=== PATIENT | female | born 1965 | race Hispanic/Latino ===

== ENCOUNTER 2017-01-12 14:35 | Emergency (ER) | payer SELFPAY ==
[2017-01-12] MEDS ORDERED: NACL 0.9% 1000 ML 1,000 ML ONE (15:17)
[2017-01-12] MEDS ORDERED: ZOFRAN ONE (15:17)
[2017-01-12] MEDS ORDERED: ZOFRAN IV ONE ×2 (15:27→15:31)
[2017-01-12] MEDS ORDERED: NACL 0.9% 1000 ML 1,000 ML IV ONE ×2 (15:27→15:31)
[2017-01-12] MEDS ORDERED: KEPPRA 1,000 MG/NS 0.75% 100ML 1,000 MG/100 ML BAG IV ONE (15:31)
[2017-01-12 16:00] LABS: Basophils % (Auto) 0.4 % (0.0-1.8); Eosinophils % (Auto) 0.4 % (0.0-4.3); Hematocrit 30.5 % (30.3-42.9); Hemoglobin 10.1 gm/dl (10.1-14.3); Mean Corpuscular HGB Conc 33 % (30-34); Mean Corpuscular Hemoglobin 28 pg (28-32); Mean Corpuscular Volume 83 fl (79-97); Platelet Count 260 K/mm3 (140-440); Red Blood Count 3.67 M/mm3 (3.65-5.03); Red Cell Distribution Width 16.3 % (13.2-15.2)
[2017-01-12 16:19] LABS: Alanine Aminotransferase 10 units/L (7-56); Albumin 3.9 g/dL (3.9-5); Albumin/Globulin Ratio 1.6 %; Alkaline Phosphatase 89 units/L (35-129); Anion Gap 13 mmol/L; BUN/Creatinine Ratio 8.57; Bilirubin,Total 0.3 mg/dL (0.1-1.2); Blood Urea Nitrogen 6 mg/dL (7-17); Calcium 8.7 mg/dL (8.4-10.2); Carbon Dioxide 25 mmol/L (22-30); Chloride 104.1 mmol/L (98-107); Glucose 104 mg/dL (65-100); Potassium 4.1 mmol/L (3.6-5.0); Sodium 138 mmol/L (137-145); Total Protein 6.4 g/dL (6.3-8.2)
[2017-01-12 16:21] LABS: Bilirubin,Direct < 0.2 mg/dL (0-0.2); Bilirubin,Indirect 0.1 mg/dL
--- NOTE | 2017-01-12 16:36 | Emergency Department Report ---
ED Seizure HPI - General Chief Complaint: Seizure Stated Complaint: SEIZURE Time Seen by Provider: 01/12/17 15:16 Source: patient, EMS Mode of arrival: Stretcher Limitations: No Limitations - History of Present Illness Initial Comments: , The patient was witnessed to have a tonic-clonic seizure at her place of work. Patient states that she is aware that she bumped her head. She feels like she may have abraded her right lower lip. She complains of mild soreness only at these areas. She states that she had no prodromal headache. She did have a feeling of malaise and what she described as consistent with scintillations prior to the event. She states that she believes she had one other seizure or than 5 years ago but she did not have any workup thereof. She' s had no prior CT of the head for any reason. She does not report any alcohol or substance abuse. MD Complaint: seizure -: Sudden Description of Episode: tonic-clonic movement -: second(s) Witnessed:: Yes Trauma: Yes (see above) Seizure History: other Place: work Possible Precipitating Event: none Associated Symptoms: denies other symptoms Treatments Prior to Arrival: none - Related Data Previous Rx's Medication Instructions Recorded Last Taken Type Meclizine [Antivert] 25 mg PO TID PRN #15 tablet 02/03/14 02/05/14 09:00 Rx Ondansetron [Zofran] 4 mg PO Q6HR PRN #15 tablet 02/03/14 02/04/14 19:00 Rx Divalproex ER [Depakote ER] 500 mg PO QDAY #30 tablet NS 02/05/14 Unknown Rx methylPREDNISolone [Medrol Dose 1 tab PO DAILY #1 pkg 02/05/14 Unknown Rx Gus] levETIRAcetam [Keppra TAB] 500 mg PO BID #60 tablet 01/12/17 Unknown Rx Allergies Allergy/AdvReac Type Severity Reaction Status Date / Time No Known Allergies Allergy Verified 02/05/14 16:39 ED Review of Systems ROS: Stated complaint: SEIZURE Other details as noted in HPI Constitutional: denies: chills, fever Eyes: denies: eye pain, eye discharge, vision change ENT: denies: ear pain, throat pain Respiratory: denies: cough, shortness of breath, wheezing Cardiovascular: denies: chest pain, palpitations Endocrine: no symptoms reported Gastrointestinal: denies: abdominal pain, nausea, diarrhea Genitourinary: denies: urgency, dysuria, discharge Musculoskeletal: denies: back pain, joint swelling, arthralgia Skin: denies: rash, lesions Neurological: denies: headache, weakness, paresthesias Psychiatric: denies: anxiety, depression Hematological/Lymphatic: denies: easy bleeding, easy bruising ED Past Medical Hx - Past Medical History Previous Medical History?: No - Surgical History Past Surgical History?: No Additional Surgical History: tonsillectomy - Social History Smoking Status: Current Every Day Smoker Substance Use Type: None - Medications Home Medications: Home Medications Medication Instructions Recorded Confirmed Last Taken Type Meclizine [Antivert] 25 mg PO TID PRN #15 tablet 02/03/14 02/05/14 02/05/14 09: 00 Rx Ondansetron [Zofran] 4 mg PO Q6HR PRN #15 tablet 02/03/14 02/05/14 02/04/14 19: 00 Rx Divalproex ER [Depakote ER] 500 mg PO QDAY #30 tablet NS 02/05/14 Unknown Rx methylPREDNISolone [Medrol Dose 1 tab PO DAILY #1 pkg 02/05/14 Unknown Rx Gus] levETIRAcetam [Keppra TAB] 500 mg PO BID #60 tablet 01/12/17 Unknown Rx ED Physical Exam - General Limitations: No Limitations General appearance: alert, in no apparent distress - Head Head exam: Present: normocephalic, other (left forehead abrasion and soft tissue swelling.) - Eye Eye exam: Present: normal appearance, PERRL, EOMI. Absent: scleral icterus - ENT ENT exam: Present: mucous membranes moist, other (minimal lip abrasion/soft tissue swelling) - Neck Neck exam: Present: normal inspection. Absent: tenderness, meningismus - Respiratory Respiratory exam: Present: normal lung sounds bilaterally. Absent: respiratory distress - Cardiovascular Cardiovascular Exam: Present: regular rate, normal rhythm. Absent: systolic murmur, diastolic murmur, rubs, gallop - GI/Abdominal GI/Abdominal exam: Present: soft, normal bowel sounds. Absent: distended, tenderness, guarding, rebound, rigid - Extremities Exam Extremities exam: Present: normal inspection - Back Exam Back exam: Present: normal inspection - Neurological Exam Neurological exam: Present: alert, oriented X3, CN II-XII intact. Absent: motor sensory deficit - Psychiatric Psychiatric exam: Present: normal affect, normal mood - Skin Skin exam: Present: warm, dry, intact, normal color. Absent: rash ED Course Vital Signs 01/12/17 01/12/17 01/12/17 15:15 15:26 15:28 Pulse Rate 91 H 93 H Respiratory 16 18 18 Rate Blood Pressure 87/47 105/53 [Right] O2 Sat by Pulse 100 99 99 Oximetry 01/12/17 16:23 Pulse Rate 93 H Respiratory 16 Rate Blood Pressure 109/57 [Right] O2 Sat by Pulse 100 Oximetry - Reevaluation(s) Reevaluation #1: Patient remained neurologically intact. She had no subsequent problems on observation in the emergency department. She was discharged to in stable condition. I emphasized the importance of neurological clearance prior to driving or operating machinery. 01/12/17 18:50 ED Medical Decision Making - Lab Data Result diagrams: 01/12/17 15:38 01/12/17 15:38 Laboratory Results - last 24 hr 01/12/17 01/12/17 15:38 15:38 WBC 8.0 RBC 3.67 Hgb 10.1 Hct 30.5 MCV 83 MCH 28 MCHC 33 RDW 16.3 H Plt Count 260 Lymph % (Auto) 15.5 [place] % (Auto) 8.8 H Eos % (Auto) 0.4 Baso % (Auto) 0.4 Lymph # 1.2 Cache # 0.7 Eos # 0.0 Baso # 0.0 Seg Neutrophils % 74.9 H Seg Neutrophils # 6.0 Sodium 138 Potassium 4.1 Chloride 104.1 Carbon Dioxide 25 Anion Gap 13 BUN 6 L Creatinine 0.7 Estimated GFR > 60 BUN/Creatinine Ratio 8.57 Glucose 104 H Calcium 8.7 Total Bilirubin 0.3 Direct Bilirubin < 0.2 Indirect Bilirubin 0.1 AST 16 ALT 10 Alkaline Phosphatase 89 Total Protein 6.4 Albumin 3.9 Albumin/Globulin Ratio 1.6 Laboratory Results - last 24 hr 01/12/17 01/12/17 01/12/17 15:38 15:38 17:15 WBC 8.0 RBC 3.67 Hgb 10.1 Hct 30.5 MCV 83 MCH 28 MCHC 33 RDW 16.3 H Plt Count 260 Lymph % (Auto) 15.5 Cache % (Auto) 8.8 H Eos % (Auto) 0.4 Baso % (Auto) 0.4 Lymph # 1.2 Cache # 0.7 Eos # 0.0 Baso # 0.0 Seg Neutrophils % 74.9 H Seg Neutrophils # 6.0 Sodium 138 Potassium 4.1 Chloride 104.1 Carbon Dioxide 25 Anion Gap 13 BUN 6 L Creatinine 0.7 Estimated GFR > 60 BUN/Creatinine Ratio 8.57 Glucose 104 H Calcium 8.7 Total Bilirubin 0.3 Direct Bilirubin < 0.2 Indirect Bilirubin 0.1 AST 16 ALT 10 Alkaline Phosphatase 89 Total Protein 6.4 Albumin 3.9 Albumin/Globulin Ratio 1.6 Urine Color Straw Urine Turbidity Clear Urine pH 8.0 H Ur Specific [place] 1.006 Urine Protein <15 mg/dl Urine Glucose (UA) Neg Urine Ketones Neg Urine Blood Lg Urine Nitrite Neg Urine Bilirubin Neg Urine Urobilinogen < 2.0 Ur Leukocyte Esterase Neg Urine WBC (Auto) < 1.0 Urine RBC (Auto) 66.0 U Epithel Cells (Auto) < 1.0 Urine Bacteria (Auto) 1+ Urine Mucus Few Urine Opiates Screen Urine Methadone Screen Ur Barbiturates Screen Ur Phencyclidine Scrn Ur Amphetamines Screen U Benzodiazepines Scrn Urine Cocaine Screen U Marijuana (THC) Screen Drugs of Abuse Note 01/12/17 17:15 WBC RBC Hgb Hct MCV MCH MCHC RDW Plt Count Lymph % (Auto) [place] % (Auto) Eos % (Auto) Baso % (Auto) Lymph # [place] # Eos # Baso # Seg Neutrophils % Seg Neutrophils # Sodium Potassium Chloride Carbon Dioxide Anion Gap BUN Creatinine Estimated GFR BUN/Creatinine Ratio Glucose Calcium Total Bilirubin Direct Bilirubin Indirect Bilirubin AST ALT Alkaline Phosphatase Total Protein Albumin Albumin/Globulin Ratio Urine Color Urine Turbidity Urine pH Ur Specific [place] Urine Protein Urine Glucose (UA) Urine Ketones Urine Blood Urine Nitrite Urine Bilirubin Urine Urobilinogen Ur Leukocyte Esterase Urine WBC (Auto) Urine RBC (Auto) U Epithel Cells (Auto) Urine Bacteria (Auto) Urine Mucus Urine Opiates Screen Presumptive negative Urine Methadone Screen Presumptive negative Ur Barbiturates Screen Presumptive negative Ur Phencyclidine Scrn Presumptive negative Ur Amphetamines Screen Presumptive negative U Benzodiazepines Scrn Presumptive negative Urine Cocaine Screen Presumptive negative U Marijuana (THC) Screen Presumptive negative Drugs of Abuse Note Disclamer - Radiology Data Radiology results: report reviewed interpreted by me: CT head showed no intracranial abnormality Critical care attestation.: If time is entered above; I have spent that time in minutes in the direct care of this critically ill patient, excluding procedure time. ED Disposition Clinical Impression: Generalized seizure Forehead contusion Qualifiers: Encounter type: initial encounter Qualified Code(s): S00.83XA - Contusion of other part of head, initial encounter Disposition: DISCHARGED TO HOME OR SELFCARE Is pt being admited?: No Does the pt Need Aspirin: No Condition: Stable Instructions: Minor Head Injury (ED), Recurrent Seizures Adult (ED) Additional Instructions: Adiel Wu requires that you are cleared by a neurologist preferably after having a seizure before he returned to driving or operating heavy machinery. This is strongly recommended. Rx Keppra for seizure management. Return any acute change or problem. Prescriptions: levETIRAcetam [Keppra TAB] 500 mg PO BID #60 tablet Referrals: MARIA FERNANDA GALINDO MD [Staff Physician] - 3-5 Days PRIMARY CARE, [Primary Care Provider] - 3-5 Days Time of Disposition: 18:51
[2017-01-12 17:40] LABS: Urine Drugs of Abuse Note Disclamer
--- NOTE | 2017-01-12 17:49 | Cat Scan Report ---
FINAL REPORT EXAM: CT HEAD/BRAIN WO CON HISTORY: sz TECHNIQUE: Standard unenhanced CT of the head at 5.0 and 2.5 millimeter axial increments. PRIORS: None. FINDINGS: The ventricular system is normal in size and configuration. There is no evidence for parenchymal volume loss. There is no evidence for mass lesion, mass effect, midline shift, acute intracranial hemorrhage, or acute ischemia/ infarction. No evidence for acute skull fracture is seen. No abnormality in the overlying scalp soft tissues is seen. Visualized paranasal sinuses are clear. IMPRESSION: Negative CT of the head. No acute intracranial process noted.
[2017-01-12 17:59] LABS: Bacteria,Urine 1+ /HPF (Negative); Bilirubin,Urine NEG (Negative); Blood,Urine LG (Negative); Ketones,Urine NEG (Negative); Leukocyte Esterase,Urine NEG (Negative); Mucus,Urine FEW /HPF; Nitrite,Urine NEG (Negative); Protein,Urine <15 mg/dL mg/dL (Negative); Urobilinogen,Urine < 2.0 mg/dL (<2.0); WBC,Urine < 1.0 /HPF (0.0-6.0)
[2017-01-12 19:23] VITALS: BP 112/52
== END 2017-01-12 18:30 | disposition home or self-care (01) ==
LOC: ED 14:35
DX: S00.83XA Contusion of other part of head, initial encounter (principal); R56.9 Unspecified convulsions; F17.200 Nicotine dependence, unspecified, uncomplicated; W18.30XA Fall on same level, unspecified, initial encounter; Y93.9 Activity, unspecified; Y92.9 Unspecified place or not applicable; Y99.9 Unspecified external cause status
CPT/HCPCS: 36415; 70450; 80048; 80074; 80307; 81001; 85025; 93005; 93010; 96365; 96375; 99284; J1953; J2405; J7030

== ENCOUNTER 2022-05-19 10:15 | Outpatient (CLI) | payer OTHER ==
--- NOTE | 2022-05-19 11:36 | XRay Report ---
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 COMPARISON: None available. IMPRESSION: The airway is widely patent with no radiopaque foreign body identified. No soft tissue s welling identified. Intact ACDF at C4-5. Normal alignment. 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 Signer Name: Christopher Hendricks MD Signed: 05/19/2022 11:31 AM Workstation Name: [id number]
== END 2022-05-19 10:16 | disposition home or self-care (01) ==
LOC: LAB 10:15
PROVIDERS: ATTEND Surgery
DX: E04.1 Nontoxic single thyroid nodule (principal); M47.812 Spondylosis without myelopathy or radiculopathy, cervical region
CPT/HCPCS: 70360